=== PATIENT | male | born 1995 | race Caucasian/White ===

== ENCOUNTER 2017-11-21 18:00 | Observation (INO) | payer SELFPAY ==
[~2017-11-21] VITALS: Ht 185.4 cm; Wt 81.3 kg
[2017-11-21 18:19] LABS: BASO % 0.2 % (0.0-2.0); EOS # 0.1 (0.0-0.7); EOS % 0.6 % (0-4.0); GRAN # 8.4 (1.4-6.5); GRAN % 54.1 % (42.2-75.2); HEMATOCRIT 43.3 % (42.0-52.0); HEMOGLOBIN 15.3 g/dl (13.5-18.0); LYMPH # 5.7 (1.2-3.4); LYMPH % 36.7 % (20.0-51.0); MEAN CELL VOLUME 90 fl (80.0-100.0); MEAN CORPUSCULAR HEMOGLOBIN 32 pg (27.0-31.0); MEAN CORPUSCULAR HGB CONC 35 g/dl (33.0-37.0); MEAN PLATELET VOLUME 8.1 fl (7.4-10.4); MONO # 1.2 (0.1-0.6); MONO % 7.8 % (1.7-9.3); PLATELET COUNT 323 K/mm3 (130-400); RED BLOOD COUNT 4.83 M/mm3 (4.20-5.60); REDCELL DISTRIBUTION WIDTH-CV 12.4 % (11.5-14.5)
[2017-11-21 18:30] LABS: ALBUMIN 4.2 gm/dL (3.5-5.0); BILIRUBIN,TOTAL 0.8 mg/dL (0.0-1.0); CALCIUM 8.8 mg/dL (8.4-10.2); CREATININE, serum 1.11 mg/dL (0.66-1.25); POTASSIUM 3.3 mmol/L (3.4-5.0); TOTAL PROTEIN 7.6 gm/dL (6.4-8.2)
[2017-11-21] MEDS ORDERED: CEPHALEXIN500 M1 PO (21:34)
[2017-11-21] MEDS ORDERED: PERCOCET 325 MG1 TA2 PO (21:34)
[2017-11-22 00:50] VITALS: BP 134/88; PULSE 100; TEMP 98.2
[2017-11-22 04:14] VITALS: BP 148/55; PULSE 75; TEMP 98.2
[2017-11-22 07:08] VITALS: BP 139/77; PULSE 80; TEMP 98.5
[2017-11-22 11:22] VITALS: BP 141/70; PULSE 76; TEMP 98.6
[2017-11-22] MEDS ORDERED: PERCOCET 325 MG1 TA2 PO (12:27)
[2017-11-22] MEDS ORDERED: MOTRIN 600600 MG/TAB PO (12:27)
[2017-11-22] MEDS ORDERED: FLEXERIL 1010 MG/TAB PO (12:30)
[2017-11-22] MEDS ORDERED: CEPHALEXIN500 M1 PO (12:30)
[2017-11-22 16:07] VITALS: BP 138/66; PULSE 71; TEMP 98.1
[2017-11-22 20:11] VITALS: BP 133/71; PULSE 87; TEMP 98.6
[2017-11-23 03:55] VITALS: BP 128/58; PULSE 65; TEMP 98.3
[2017-11-23 07:21] VITALS: BP 138/62; PULSE 77; TEMP 98
[2017-11-23 11:24] VITALS: BP 132/64; PULSE 83; TEMP 99.2
== END 2017-11-23 15:10 | disposition home or self-care (01) ==
LOC: COL.ER 18:00 → SURG 22:45
PROVIDERS: Emergency Medicine
DX: S81.812A Laceration without foreign body, left lower leg, initial encounter (principal); S01.81XA Laceration without foreign body of other part of head, initial encounter; S09.90XA Unspecified injury of head, initial encounter; T14.8XXA Other injury of unspecified body region, initial encounter; V49.3XXA Car occupant (driver) (passenger) injured in unspecified nontraffic accident, initial encounter
CPT/HCPCS: G0378; J0690; J2405; J3010; J7030; Q9967